=== PATIENT | male | born 1960 | race Caucasian/White ===

== ENCOUNTER 2024-12-22 11:25 | Emergency (ER) | payer OTHER, SELFPAY ==
--- OUTSIDE RECORDS SUMMARY | 2024-12-22 11:27 | XMS_ITS | Clinical Summary ---
Author Organization [id number] Address [facility] [place] [address] Care Team Providers Care Stores Assistant Name Role Phone Petey Palacios MD Primary Care Provider [phone] Allergies Active Allergy Reactions Criticality Noted Date Comments Allergenic Extracts Cough Low 03/07/2015 Sneezy, and watery eyes [place] 08/19/2010 Reacted to dust from [place] 08/18/10. Medications codeine-guaFENe sin (ROBITUSSIN AC) (10-100 mg in 5 mL) syrpIndications :Viral URI with cough Take 10 mL by mouth at bedtime if needed for Cough. 300 mL 0 08/26/2015 Active Active Problems Problem Noted Date Diagnosed Date Acute pulmonary embolism 03/07/2015 Overview (03/17/2015): Occurred postoperatively on 03/06/15 after total knee replacement. Routine adult health maintenance 08/06/2013 Overview (08/06/2013): Colonoscopy 07/2013 normal repeat in 10 years Sensorineural hearing loss, bilateral 2010 Contact dermatitis and other eczema due to plants (except food) 08/24/2010 Arthritis of knee 10/14/2008 Overview (10/14/2008): Left knee primarily. Overweight(278.02) 10/14/2008 Immunizations Immunization Administration Dates Next Due DT (Age < 7 years) 08/27/1976,06/14/1971, 968 DTaP 09/14/1962, 2,09/24/1961, 2 Hepatitis A (Adult) 01/29/2007 Influenza A (H1N1), Inactivated 03/10/2009 Influenza, IIV3 (Age >=3 years) 12/23/2014,12/25 Influenza, IIV4 01/13/2022, 1,01/21/2020, 9 Measles 02/02/1968 Polio Virus, Unspecified 08/27/1976,10/26,08/25/1962, 3,04/27/1962,10/27/1961,09/29/1961, 962 Smallpox (Vaccinia) Live [id number] 08/27/1976, Td (Age >=7 Years) 10/21/1999 Tdap 09/03/2010 Family History Medical History Relation Name Comments Cancer Father skin cancer Diabetes Father age 45 Stroke Father 70 Stroke Mother 70 Relation Name Status Comments Father Mother Social History Tobacco Use Types Packs/Day Years Used Date Smoking Tobacco: Never Smokeless Tobacco: Never Tobacco Cessation:Counseling Given: Yes Alcohol Use Standard Drinks/Week Comments Yes 3 (1 standard drink = 0.6 oz pur e alcohol) occasional Sex and Gender Information Value Date Recorded Sex Assigned at Not on file Legal 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 Gender Identity Not on file Sexual Orientation Not on file Obstetrics History Last Filed Vital Signs Vital Sign Reading Time Taken Comments Blood Pressure 129/88 08/26/2015 2:11 PM CDT Pulse 108 08/26/2015 2:11 PM CDT Temperature 36.4 C (97.6 F) 08/26/2015 2:11 PM CDT Respiratory Rate 20 03/23/2015 10:29 AM PARTITION SETTER Oxygen Saturation 97% 08/26/2015 2:11 PM CDT Inhaled Oxygen Concentration - - Weight 109.1 kg (240 lb 8 oz) 08/26/2015 2:11 PM CDT Height 173 cm (5' 8.11) 08/26/2015 2:11 PM CDT Body Mass Index 36.45 08/26/2015 2:11 PM CDT Plan of Treatment Health Maintenance Due Date Last Done Comments Depression screening for age 12+ 1972 HIV for age 15-65 12/07/1975 Hepatitis C screening for age 18-79 1978 Pneumococcal series for age 50+ (1 of 1 - PCV) 2010 Zoster (shingles) series for age 50+ (1 of 2) 2010 Lipids for age 45-75 11/17/2013 11/17/2008, 05/02/2002, 05/02/2002 BMI (ht and wt on same day) for age 18+ 08/25/2016 08/26/2015 Tetanus booster 09/03/2020 09/03/2010, 10/21/1999 Colonoscopy through age 75 08/07/2023 08/06/2013, COVID-19 vaccine series (2024- season) 2024 01/12/2022, 03/17/2021, 07/03/2020, Additional history exists Influenza Vaccine (#1) 2024 2, 01/13/2021, 01/21/2020, Additional history exists RSV vaccine for adults or (1 - 1-dose 75+ series) 12/07/2035 Hepatitis B series for 19+ Aged Out N o longer eligible based on patient's age to complete this topic Procedures Procedure Name Priority Date/Time Associated Diagnosis Comments LIPID PANEL Routine 11/17/2008 8:15 AM CDT Screening for Lipoid Disorders Overweight from Last 3 Months or Most Recently Relevant to Health Maintenance Results * LIPID PANEL (11/17/2008 8:15 AM CDT) CHOLESTEROL,TOTAL 187 110 - 199 mg/dL [facility] TRIGLYCERIDES 121 <150 mg/dL [facility] HDL CHOLESTEROL 49 >40 mg/dL [facility] CHOL/HDL RATIO 3.82 <4.51 [facility] LDL CHOLESTEROL 114 <131 mg/dL [facility] PATIENT STATUS Fasting [facility] Blood specimen (specimen) BLOOD SPECIMEN / Unknown 11/17/2008 8:15 AM CDT 11/17/2008 8:08 AM CDT us Petey Palacios MD CHEMISTRY Final Resu lt [facility] [address] [place] [address] from Last 3 Months or Most Recently Relevant to Health Maintenance Insurance [facility] Advance Directives * Full Code (Latest Code Status on File) Date Activated Date Inactivated Comments 03/07/2015 12:09 AM 03/09/2015 7:34 PM Care Teams Stores Assistant Relationship Specialty Start Date End Date Petey Palacios MD [address] [place] [address] PCP - General 09/23/08
--- OUTSIDE RECORDS SUMMARY | 2024-12-22 11:27 | XMS_ITS | Patient Health Record ---
[facility] [address] [facility] [place] [address] Care Team Providers Care Brake Mechanic Name Role Phone Jania Mami Primary Care Provider [phone] CecesandraCinda Unavailable [phone] Allergies No Known Allergies Reason For Referral No Information Medications Medication SIG (Take, Route, Frequency, Duration) Notes Start Date End Date Status Famotidine 20 MG 1 tablet at bedtime Orally Once a day; Duration: 15 day(s) 10/19/2022 Not-Taking Benadryl Allergy 25 MG 1 tablet at bedti me as needed Orally Once a day Active Valtrex 1 GM 2 Orally Once a day; Duration: 1 days Not-Taking predniSONE 20 MG 3 tabs X 3 days, the n 2 tabs X 3 days, then 1 tab X 3 days, then 1/2 tab X 2 days Orally Once a day; Duration: 11 days 11/04/2022 Active Claritin 10 MG 1 tablet Orally Once a day Active Plan Of Treatment No Information Insurance Providers Payer Name Payer Address Payer Phone Subscriber Number Group Number Insured Name Patient Relationship to Insured Coverage Start Date Coverage End Date [employer] [address] [place] [place] [phone] [id number] RUDDY PADILLA Self - patient is the insured Medications Administered Medication Instructions Date of Administration Dosage Notes Solu-Medrol, up to 125 mg 10/19/2022 62.5 mg
[2024-12-22 11:35] VITALS: BP 117/85; PULSE 79; RESP 20; TEMP 36.1; O2SAT 96; BMI 33.5
--- NOTE | 2024-12-22 11:50 | ED.GENADULT ---
HPI - General Adult General Chief complaint: Extremity Pain/Injury, Upper Stated complaint: Cut left arm with bandsaw Time Seen by Provider: 12/22/24 11:33 Source: patient Mode of arrival: ambulatory Limitations: no limitations History of Present Illness HPI narrative: 64-year-old male presenting today with a laceration to the left forearm that he sustained with a saw. Tetanus shot in 2010. No other concerns or injuries today. Related Data Home Medications ?Medication ?Instructions ?Recorded ?Confirmed No Known Home Medications 12/22/24 12/22/24 Allergies Allergy/AdvReac Type Severity Reaction Status Date / Time comer Allergy Unknown itchy mouth Verified 12/22/24 11:35 hazelnut Allergy Unknown itchy mouth Verified 12/22/24 11:35 Review of Systems Status of ROS: Reports: 6 or more systems reviewed and unremarkable except as noted in History and below Exam Narrative: Exam Narrative: Well-nourished well-developed patient in no acute distress. Alert and oriented. Answers questions appropriately. HEENT: Normocephalic atraumatic. Extraocular muscles are intact. Conjunctivae are moist without any icterus noted. Moist mucous membranes. Extremities: Patient has approximately a 1 in laceration over the posterior forearm. Laceration goes into the subcutaneous tissue. Does not penetrate the subcutaneous tissue. There are no underlying tendons or bones visualized. Const: Vital Signs, click to edit/add: Vital Signs - 24 hr 12/22/24 11:35 Temperature 97 F L Pulse Rate [Pulse Oximeter] 79 Respiratory Rate 20 Blood Pressure [Ri ght Upper Arm] 117/85 Pulse Oximetry 96 Oxygen Delivery Me thod Room Air Course Course ED Course: Area was anesthetized with lidocaine. Wound was irrigated and cleaned. Three sutures with 4-0 Ethilon were placed without difficulty. Vital Signs Vital signs: Initial Vital Signs Temperature 97 F L 12/22/24 11:35 Temperature Source Temporal Artery Scan 12/22/24 11:35 Pulse Rate 79 12/22/24 11:35 Respiratory Rate 20 12/22/24 11:35 Blood Pressure 117/85 12/22/24 11:35 Blood Pressure Mean 95 12/22/24 11:35 Blood Pressure Position High-Fowlers 12/22/24 11:35 Pulse Oximetry 96 12/22/24 11:35 Oxygen Delivery Method Room Air 12/22/24 11:35 Vital Signs Temperature 97 F L 12/22/24 11:35 Pulse Rate 79 12/22/24 11:35 Respiratory Rate 20 12/22/24 11:35 Blood Pressure 117/85 12/22/24 11:35 Pulse Oximetry 96 12/22/24 11:35 Oxygen Delivery Method Room Air 12/22/24 11:35 Temperature 97 F L 12/22/24 11:35 Pulse Rate 79 12/22/24 11:35 Respiratory Rate 20 12/22/24 11:35 Blood Pressure 117/85 12/22/24 11:35 Pulse Oximetry 96 12/22/24 11:35 Oxygen Delivery Method Room Air 12/22/24 11:35 Medical Decision Making MDM Narrative Medical decision making narrative: 64-year-old male with a laceration sutured per above. Tetanus shot updated today. Discharge Plan Discharge Clinical Impression: Laceration Patient Disposition: Home, Self-Care Condition: Improved Additional Instructions: Keep wound clean and dry. Do not soak such as taking baths, swimming. Follow-up in approximately 1 week for suture removal with your primary care provider. Watch for signs and symptoms of infection including increasing redness of the area, purulent drainage, or fever. If this occurs follow-up right away with your doctor or return to the ER. Change dressing once daily. Use a small amount of antibiotic ointment on the laceration once daily for the next 3 days. Prescriptions: No Action No Known Home Medications Follow Up/Referrals: Mikhail Espinoza MD [Primary Care Provider, Sleep Medicine] Stand Alone Forms: [email or web address] Info Instructions
[2024-12-22] MEDS: TETANUS/DIPHTH/PERTUSSIS 0.5 ML SYRINGE IM (11:57)
[2024-12-22] MEDS: lidocaine HCL 2 % MULTIDOSE 20 ML VIAL INJECTION (12:04)
== END 2024-12-22 12:10 | disposition home or self-care (01) ==
LOC: ED 12:02
PROVIDERS: Emergency Provider Family Medicine; PCP Internal Medicine
DX: S51.812A Laceration without foreign body of left forearm, initial encounter (principal); W31.2XXA Contact with powered woodworking and forming machines, initial encounter
CPT/HCPCS: 12001; 90471; 90715; 99284